=== PATIENT | female | born 1975 | race Caucasian/White ===

== ENCOUNTER 2018-05-07 15:34 | Outpatient (CLI) | payer MEDICAID | END 2018-05-07 16:30 | disposition home or self-care (01) | LOC: OBT 15:34 → L-D 15:36 → OBT 16:30 | DX: Z02.9 Encounter for administrative examinations, unspecified (principal) | CPT/HCPCS: 76856 ==

== ENCOUNTER 2018-05-07 16:30 | Inpatient (IN) | payer MEDICAID ==
[2018-05-07 17:44] LABS: WHITE BLOOD COUNT 8.1 10^3/ul (4.8-10.8)
[2018-05-07 17:44] LABS: ABNORMAL IP MESSAGE 1; ADD UMIC YES; MEAN CORPUSCULAR HEMOGLOBIN 16.4 pg (29.0-33.0); MEAN CORPUSCULAR HGB CONC 26.5 g/dl (32.0-37.0); MEAN CORPUSCULAR VOLUME 61.8 fl (82.0-101.0); MEAN PLATELET VOLUME 9.3 fl (7.4-10.4); PLATELET COUNT 509 10^3/UL (140-415); RED BLOOD COUNT 4.21 10^6/ul (4.20-5.40); RED CELL DISTRIBUTION WIDTH 22.1 % (11.5-14.5); UR ASCORBIC ACID NEGATIVE (NEGATIVE); UR BACTERIA FEW /HPF (NONE SEEN); UR BILIRUBIN (Dip) NEGATIVE (NEGATIVE); UR BLOOD (Dip) 3+ mg/dL (NEGATIVE); UR CLARITY CLEAR (CLEAR); UR COLOR YELLOW (YELLOW); UR GLUCOSE (Dip) NEGATIVE (NEGATIVE); UR KETONES (Dip) NEGATIVE (NEGATIVE); UR LEUKOCYTE ESTERASE (Dip) NEGATIVE Leu/ul (NEGATIVE); UR NITRITE (Dip) NEGATIVE (NEGATIVE); UR RBC > 182 /HPF (0-5); UR SPECIFIC GRAVITY (Dip) 1.015 (1.003-1.030); UR TOTAL PROTEIN (Dip) NEGATIVE (NEGATIVE); UR UROBILINOGEN (Dip) NEGATIVE (NEGATIVE); UR WBC 10 /HPF (0-5)
[2018-05-07 17:47] LABS: ADD MAN DIFF? YES; HEMOGLOBIN 6.9 g/dl (12.0-16.0); POSITIVE DIFF @See below
[2018-05-07 18:03] LABS: ALANINE AMINOTRANSFERASE 27 IU/L (13-69); ALBUMIN 3.5 g/dl (3.3-4.9); ALBUMIN/GLOBULIN RATIO 0.92; ALKALINE PHOSPHATASE 90 IU/L (42-121); AMYLASE 64 U/L (11-123); ANION GAP 5 (5-13); ASPARTATE AMINO TRANSFERASE 17 IU/L (15-46); BILIRUBIN,INDIRECT 0.2 mg/dl (0-1.1); BILIRUBIN,TOTAL 0.2 mg/dl (0.2-1.3); BLOOD UREA NITROGEN 13 mg/dl (7-20); CALCIUM 8.9 mg/dl (8.4-10.2); CARBON DIOXIDE 27 mmol/L (21-31); CHLORIDE 109 mmol/L (97-110); CREATININE 0.72 mg/dl (0.44-1.00); GLUCOSE 102 mg/dl (70-220); LIPASE 170 U/L (23-300); POTASSIUM 4.2 mmol/L (3.5-5.1); SODIUM 141 mmol/L (135-144); TOTAL PROTEIN 7.3 g/dl (6.1-8.1)
[2018-05-07 18:07] LABS: INR 0.93; PARTIAL THROMBOPLASTIN TIME 25.8 Sec (23.0-35.0); PROTIME 12.6 Sec (11.9-14.9)
[2018-05-07 18:13] LABS: ANISOCYTOSIS 3+ (0-0); HYPOCHROMASIA 3+ (0-0); LYMPHOCYTES #M 1.5 10^3/ul (0.8-2.9); LYMPHOCYTES % (M) 19 % (15-51); MICROCYTOSIS 3+ (0-0); MONOCYTE #M 0.3 10^3/ul (0.3-0.9); MONOCYTES % (M) 4 % (0-11); PLATELET ESTIMATE INCREASED; POIKILOCYTOSIS 1+ (0-0); POLYCHROMASIA 1+ (0-0); SEGMENTED NEUTROPHILS (M) % 77 % (39-77); SMUDGE%M 9 % (0-0); TEAR DROP CELLS 1+ (0-0)
[2018-05-07 18:20] LABS: OCCULT BLOOD STOOL POSITIVE (NEGATIVE)
[2018-05-07] MEDS: SOD CHLORIDE 0.9% 1,000 ML IV (18:20)
[2018-05-07 18:42] LABS: IRON 17 ug/dl (35-150)
[2018-05-07 18:43] LABS: LACTATE DEHYDROGENASE 465 IU/L (313-618)
[2018-05-07] MEDS: SOD CHLORIDE 0.9% 100 ML (18:43)
[2018-05-07] MEDS: IOHEXOL 300MG/ML 150 ML BTL (18:43)
[2018-05-07 18:52] LABS: % IRON SATURATION 4 % SAT (22-52); TOTAL IRON BINDING CAPACITY 480 ug/dl (241-421)
[2018-05-07 19:17] LABS: FERRITIN 3.7 ng/ml (6.2-137.0)
[2018-05-07] MEDS: HYDROmorphONE 1 MG/ML SYG IV (19:39)
[2018-05-07] MEDS: ONDANSETRON 4 MG INJ IV (19:39)
[2018-05-07] MEDS ORDERED: NACL 0.9% 3 ML SYG IV (20:30)
[2018-05-07] MEDS ORDERED: ONDANSETRON 4 MG INJ IV ×2 (20:30)
[2018-05-07] MEDS ORDERED: BISACODYL (EC) 5 MG TAB PO (20:30)
[2018-05-07] MEDS ORDERED: DOCUSATE SODIUM 100 MG CAP PO (20:30)
[2018-05-07] MEDS ORDERED: HYDROmorphONE 0.5 MG/0.5 ML SYG IV (20:30)
[2018-05-07] MEDS ORDERED: ACETAMINOPHEN 325 MG TAB PO ×2 (20:30)
[2018-05-07] MEDS ORDERED: HYDROCODONE/APAP (5/325) TAB PO (20:30)
[2018-05-07 20:33] LABS: IMMEDIATE SPIN CROSSMATCH 1 2
[2018-05-08 05:32] LABS: ADD MAN DIFF? NO
[2018-05-08 05:41] LABS: WHITE BLOOD COUNT 6.6 10^3/ul (4.8-10.8)
[2018-05-08 05:41] LABS: ABNORMAL IP MESSAGE 1; BASOPHIL # 0.1 10^3/ul (0.0-0.1); BASOPHILS % 0.8 % (0.0-2.0); EOSINOPHILS # 0.2 10^3/ul (0.0-0.5); EOSINOPHILS % 2.4 % (0.0-7.0); HEMATOCRIT 28.4 % (37.0-47.0); HEMOGLOBIN 7.7 g/dl (12.0-16.0); LYMPHOCYTES # 1.9 10^3/ul (0.8-2.9); LYMPHOCYTES % 28.2 % (15.0-51.0); MEAN CORPUSCULAR HEMOGLOBIN 17.7 pg (29.0-33.0); MEAN CORPUSCULAR HGB CONC 27.1 g/dl (32.0-37.0); MEAN CORPUSCULAR VOLUME 65.4 fl (82.0-101.0); MEAN PLATELET VOLUME 9.1 fl (7.4-10.4); MONOCYTE # 0.5 10^3/ul (0.3-0.9); MONOCYTES % 7.3 % (0.0-11.0); NEUTROPHILS % 60.8 % (39.0-77.0); PLATELET COUNT 443 10^3/UL (140-415); RED BLOOD COUNT 4.34 10^6/ul (4.20-5.40); RED CELL DISTRIBUTION WIDTH 24.8 % (11.5-14.5)
[2018-05-08 05:50] LABS: HEMOGLOBIN A1C 5.6 % (0-5.9)
[2018-05-08] MEDS: SOD FERRIC GLUC COMPLX 125 MG in SOD CHLORIDE 0.9% 100 ML IVPB ×2 (05:50→17:26)
[2018-05-08 05:52] LABS: POSITIVE DIFF @See below
[2018-05-08 07:16] LABS: ALANINE AMINOTRANSFERASE 24 IU/L (13-69); ALBUMIN 3.7 g/dl (3.3-4.9); ALBUMIN/GLOBULIN RATIO 1.12; ALKALINE PHOSPHATASE 77 IU/L (42-121); ANION GAP 8 (5-13); ASPARTATE AMINO TRANSFERASE 17 IU/L (15-46); BILIRUBIN,INDIRECT 0.4 mg/dl (0-1.1); BILIRUBIN,TOTAL 0.4 mg/dl (0.2-1.3); BLOOD UREA NITROGEN 10 mg/dl (7-20); CALCIUM 8.3 mg/dl (8.4-10.2); CARBON DIOXIDE 24 mmol/L (21-31); CHLORIDE 110 mmol/L (97-110); CHOLESTEROL 166 mg/dl (100-200); CREATININE 0.55 mg/dl (0.44-1.00); GLUCOSE 89 mg/dl (70-220); HDL CHOLESTEROL 41 mg/dl (34-88); LDL CHOLESTEROL,CALCULATED 101 mg/dl; MAGNESIUM 2.2 mg/dl (1.7-2.5); POTASSIUM 4.2 mmol/L (3.5-5.1); SODIUM 142 mmol/L (135-144); TRIGLYCERIDES 121 mg/dl (0-149)
[2018-05-08 20:10] LABS: CANCER ANTIGEN 125 22.7 U/ml (0.0-35.0)
[2018-05-09 05:11] LABS: ADD MAN DIFF? NO
[2018-05-09 05:14] LABS: WHITE BLOOD COUNT 8.2 10^3/ul (4.8-10.8)
[2018-05-09 05:14] LABS: ABNORMAL IP MESSAGE 1; BASOPHIL # 0.1 10^3/ul (0.0-0.1); EOSINOPHILS # 0.3 10^3/ul (0.0-0.5); EOSINOPHILS % 3.3 % (0.0-7.0); HEMATOCRIT 31.4 % (37.0-47.0); HEMOGLOBIN 8.8 g/dl (12.0-16.0); LYMPHOCYTES # 2.1 10^3/ul (0.8-2.9); LYMPHOCYTES % 25.4 % (15.0-51.0); MEAN CORPUSCULAR HEMOGLOBIN 18.6 pg (29.0-33.0); MEAN CORPUSCULAR VOLUME 66.2 fl (82.0-101.0); MEAN PLATELET VOLUME 8.9 fl (7.4-10.4); MONOCYTE # 0.6 10^3/ul (0.3-0.9); MONOCYTES % 7.2 % (0.0-11.0); NEUTROPHIL # 5.1 10^3/ul (1.6-7.5); NEUTROPHILS % 61.9 % (39.0-77.0); NUCLEATED RED BLOOD CELLS% 0.4 /100WBC (0.0-0.0); PLATELET COUNT 417 10^3/UL (140-415); RED BLOOD COUNT 4.74 10^6/ul (4.20-5.40); RED CELL DISTRIBUTION WIDTH 25.7 % (11.5-14.5)
[2018-05-09 05:29] LABS: POSITIVE DIFF @See below
[2018-05-09 06:31] LABS: ALBUMIN 3.3 g/dl (3.3-4.9); ANION GAP 9 (5-13); BLOOD UREA NITROGEN 10 mg/dl (7-20); CALCIUM 8.7 mg/dl (8.4-10.2); CARBON DIOXIDE 25 mmol/L (21-31); CHLORIDE 107 mmol/L (97-110); CREATININE 0.63 mg/dl (0.44-1.00); GLUCOSE 99 mg/dl (70-220); MAGNESIUM 2.1 mg/dl (1.7-2.5); PHOSPHORUS 3.9 mg/dl (2.5-4.9); POTASSIUM 4.3 mmol/L (3.5-5.1); SODIUM 141 mmol/L (135-144)
[2018-05-09] MEDS: MEDROXYPROGESTERONE 10 MG TAB PO (08:20)
[2018-05-11 17:41] LABS: TRANSFERRIN 401 mg/dL (188-341)
== END 2018-05-09 13:08 | disposition home or self-care (01) | DRG 760 ==
LOC: FTE 16:30 → 6WM 20:02
PROVIDERS: Pediatrics
PROC: 30233J1 Transfusion of Nonautologous Serum Albumin into Peripheral Vein, Percutaneous Approach (ICD-10-PCS; principal; 2018-05-07)
DX: D25.9 Leiomyoma of uterus, unspecified (principal); Z68.41 Body mass index [BMI] 40.0-44.9, adult; D50.0 Iron deficiency anemia secondary to blood loss (chronic); N83.201 Unspecified ovarian cyst, right side; E66.01 Morbid (severe) obesity due to excess calories; R93.89 Abnormal findings on diagnostic imaging of other specified body structures
CPT/HCPCS: 36430; 74177; 76856; 80053; 80061; 80069; 81001; 81025; 82150; 82270; 82728; 83036; 83540; 83615; 83690; 83735; 84443; 84466; 84702; 85025; 85610; 85730; 86304; 86305; 86850; 86900; 86901; 86920; 87086; 96374; 96375; 99285-25